=== PATIENT | male | born 1950 | race Caucasian/White ===

== ENCOUNTER → 2020-10-03 | Outpatient (CLI) | payer OTHER | LOC: HEART 5 09:13 | DX: J64 Unspecified pneumoconiosis (principal); Z87.891 Personal history of nicotine dependence | CPT/HCPCS: 94060; 94729 ==

== ENCOUNTER → 2021-11-28 | Outpatient (CLI) | payer OTHER | LOC: EXRD 13:19 | DX: J93.9 Pneumothorax, unspecified (principal) | CPT/HCPCS: 71046 ==